=== PATIENT | male | born 1990 ===

== ENCOUNTER 2021-05-02 16:22 | Emergency (ER) | payer SELFPAY ==
[2021-05-02 17:30] VITALS: BP 118/74
--- NOTE | 2021-05-02 18:22 | Emergency Department Report ---
Chief Complaint: Urogenital-Male Stated Complaint: STD Time Seen by Provider: 05/02/21 18:15 - HPI History of Present Illness: Patient is a 31-year-old male presents emergency room with complaints of an "STD." He states for the last 2 to 3 days he has had dysuria and penile discharge. He denies any fever, nausea, vomiting, diarrhea, abdominal pain, pain or swelling the testicles, lesions or blisters. He states he did have unprotected intercourse. He denies any past medical history or any allergies to medications. Vitals are normal On exam: Non toxic appearing, no acute distress atraumatic, normocephalic normal appearance of the eyes,, EOMI, no periorbital edema or ecchymosis moist mucus membranes No respiratory distress, no accessory muscle use A&O x4, normal gait Patient is presenting with symptoms most consistent with male STD He is not having any abdominal pain, urinary retention, pain or swelling in the testicles Patient will be given the appropriate resources in order to receive a full STD panel and treatment as appropriate Discussed return precautions Medical screen examination performed and there is no better life limb at this time - Exam Vital Signs: Vital Signs 05/02/21 17:24 Temperature 98.0 F Pulse Rate 64 Respiratory 20 Rate Blood Pressure 118/74 O2 Sat by Pulse 97 Oximetry MSE screening note: Focused history and physical exam performed. ED Disposition for MSE Clinical Impression: Concern about STD in male without diagnosis Disposition: DC-01 TO HOME OR SELFCARE Is pt being admited?: No Does the pt Need Aspirin: No Condition: Stable Instructions: Safe Sex Additional Instructions: Please follow-up with the health department or clinic in order to receive a full STD panel. Please have any partners tested and treated as well. Avoid sexual intercourse. Return to emergency room for new or worsening symptoms walk in clinic: [facility] Address: [address] [place] [id number] [facility] [Outside] - 2-3 Days [facility] [Provider Group] - 2-3 Days Time of Disposition: 18:16 Print Language: FRENCH
== END 2021-05-02 18:30 | disposition left against medical advice (07) ==
LOC: ED 16:22
DX: Z20.2 Contact with and (suspected) exposure to infections with a predominantly sexual mode of transmission (principal); Z53.21 Procedure and treatment not carried out due to patient leaving prior to being seen by health care provider

== ENCOUNTER 2021-12-07 14:15 | Emergency (ER) | payer SELFPAY | END 2021-12-08 08:46 | disposition left against medical advice (07) | LOC: ED 14:15 | DX: L98.9 Disorder of the skin and subcutaneous tissue, unspecified (principal); Z53.21 Procedure and treatment not carried out due to patient leaving prior to being seen by health care provider ==